=== PATIENT | female | born 1985 | race Caucasian/White ===

== ENCOUNTER 2017-07-31 16:07 | Inpatient (IN) ==
[2017-07-31] MEDS ORDERED: Haloperidol Lactate 5 MG/ML VIAL IM PRN (16:38)
[2017-07-31] MEDS ORDERED: Mag Hydrox/Al Hydrox/Simeth 30 ML UDC PO PRN (16:38)
[2017-07-31] MEDS ORDERED: *HR* LORazepam 2 MG/ML VIAL IM PRN (16:38)
[2017-07-31] MEDS ORDERED: MOM Conc 10 ML UD.LIQ PO PRN (16:38)
[2017-07-31] MEDS ORDERED: traZODone 50 MG TABLET PO PRN (16:38)
[2017-07-31] MEDS ORDERED: *HR* LORazepam 1 MG TABLET PO PRN (16:38)
[2017-07-31] MEDS ORDERED: Ibuprofen 400 MG TABLET PO PRN (16:38)
[2017-07-31] MEDS: Doxycycline 100 MG CAPSULE PO SCH (20:09)
[2017-07-31] MEDS: lamoTRIgine 100 MG TABLET PO SCH (20:10)
[2017-07-31] MEDS: (Dextroamphetamine/Amphetamine [Adderall 20 Mg Tablet) PO SCH (20:14)
[2017-08-01] MEDS: clonazePAM 0.5 MG TABLET PO PRN ×2 (06:59→14:24)
[2017-08-01] MEDS: Doxycycline 100 MG CAPSULE PO SCH ×2 (09:15→20:05)
[2017-08-01] MEDS: (Dextroamphetamine/Amphetamine [Adderall 20 Mg Tablet) PO SCH ×2 (09:22→20:44)
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
[2017-08-01] MEDS: lamoTRIgine 25 MG TABLET PO SCH (10:37)
[2017-08-01] MEDS: lamoTRIgine 100 MG TABLET PO SCH (20:05)
[2017-08-01] MEDS: hydrOXYzine pamoate 25 MG CAPSULE PO PRN (20:05)
[2017-08-02] MEDS: Doxycycline 100 MG CAPSULE PO SCH (08:23)
[2017-08-02] MEDS: lamoTRIgine 25 MG TABLET PO SCH (08:23)
[2017-08-02] MEDS: clonazePAM 0.5 MG TABLET PO PRN (08:26)
[2017-08-02] MEDS: (Dextroamphetamine/Amphetamine [Adderall 20 Mg Tablet) PO SCH (08:35)
[2017-08-02 09:19] VITALS: BP 104/65
[2017-08-02] MEDS: hydrOXYzine pamoate 25 MG CAPSULE PO PRN (10:07)
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
== END 2017-08-02 16:20 | disposition home or self-care (01) | DRG 753 ==
LOC: 1ANU 16:07
PROVIDERS: ADMIT Psychiatry & Neurology Psychiatry; ATTEND Psychiatry & Neurology Psychiatry